=== PATIENT | male | born 1980 | race Caucasian/White ===

== ENCOUNTER 2016-06-18 14:50 | Emergency (ER) | payer OTHER ==
[~2016-06-18] VITALS: Ht 165.1 cm; Wt 91.1 kg
[2016-06-18] MEDS ORDERED: ZOFRAN ODT4 MG PO (18:24)
[2016-06-18 18:38] VITALS: BP 142/99
== END 2016-06-18 18:38 | disposition home or self-care (01) ==
LOC: EME 14:50
DX: R11.2 Nausea with vomiting, unspecified (principal); F17.200 Nicotine dependence, unspecified, uncomplicated
CPT/HCPCS: 99281; 99284

== ENCOUNTER → 2017-07-04 | Outpatient (CLI) | payer OTHER ==
[~2017-07-04] MED LIST: COLACE100 MG PO; NEURONTIN600 MG PO; PERCOCET 5/31 TABLET PO; TRAZODONE HCL50 MG PO; ZOFRAN ODT4 MG PO
== END | disposition home or self-care (01) ==
LOC: CDC 12:41
DX: Z01.810 Encounter for preprocedural cardiovascular examination (principal); K42.9 Umbilical hernia without obstruction or gangrene; I10 Essential (primary) hypertension; I49.8 Other specified cardiac arrhythmias
CPT/HCPCS: 93000

== ENCOUNTER 2017-07-06 08:10 | Day surgery (SDC) | payer OTHER ==
[~2017-07-06] VITALS: Ht 165.1 cm; Wt 89.8 kg
[~2017-07-06 08:10] MED LIST changes: -COLACE100 MG PO; -PERCOCET 5/31 TABLET PO
[2017-07-06 08:40] VITALS: BP 126/78
[2017-07-06] MEDS ORDERED: COLACE100 MG PO (10:41)
[2017-07-06] MEDS ORDERED: PERCOCET 5/31 TABLET PO (10:41)
[2017-07-06 13:27] VITALS: BP 126/70
[2017-07-06 14:10] VITALS: BP 127/77
[2017-07-06 16:00] VITALS: BP 143/85
== END 2017-07-06 16:10 | disposition home or self-care (01) ==
LOC: SDC 08:10
PROC: 0WUF4JZ Supplement Abdominal Wall with Synthetic Substitute, Percutaneous Endoscopic Approach (ICD-10-PCS; principal; 2017-07-06)
DX: K42.9 Umbilical hernia without obstruction or gangrene (principal); R12 Heartburn; F17.200 Nicotine dependence, unspecified, uncomplicated; Z87.11 Personal history of peptic ulcer disease; Z82.49 Family history of ischemic heart disease and other diseases of the circulatory system; Z83.3 Family history of diabetes mellitus; Z88.8 Allergy status to other drugs, medicaments and biological substances
CPT/HCPCS: 88302; J0690; J1100; J1170; J2250; J2405; J2710; J3010; J7643; S0020